=== PATIENT | male | born 1965 | race American Indian/Alaskan Native ===

== ENCOUNTER 2018-10-17 14:36 | Emergency (ER) | payer MEDICAID, OTHER ==
[2018-10-17 14:45] VITALS: BMI 44.6
[2018-10-17 14:54] VITALS: RESP 18; TEMP 98.2
--- NOTE | 2018-10-17 15:21 | ED PDOC ---
Arrival/HPI - General Historian: Patient - History of Present Illness Narrative History of Present Illness (Text): 10/17/18 15:09 52yr old male presents today with a 4 day history of left upper dental pain. pt states 4 day ago he started with just slight left upper dental pain that has been gradually increasing. pt states since last night symptoms worsened. Patient states he has been doing warm salt water gargles without improvement. Patient states today he woke up with swelling to the left side of the face. He denies blurred vision. Denies headaches dizziness or weakness. He denies fevers or chills. No medications have been taken at home. Patient denies pain with eye mov ement. No other complaints. <Shannon Hudson - Last Filed: 10/17/18 17:01> <Jimenez Kuhn - Last Filed: 10/17/18 17:23> - General Chief Complaint: Dental Pain Time Seen by Provider: 10/17/18 14:39 Past Medical History - Provider Review Nursing Documentation Reviewed: Yes - Travel History Have you recently traveled outside [place] w/in the past 3 mons?: No - Infectious Disease Hx of Infectious Diseases: None - Psychiatric Hx Substance Use: No <Shannon Hudson - Last Filed: 10/17/18 17:01> Family/Social History - Physician Review Nursing Documentation Reviewed: Yes Family/Social History: Unknown Family HX Smoking Status: Heavy Smoker > 10 Cigarettes Daily Hx Alcohol Use: Yes Frequency of alcohol use: Socially Hx Substance Use: No <Shannon Hudson - Last Filed: 10/17/18 17:01> Allergies/Home Meds <Shannon Hudson - Last Filed: 10/17/18 17:01> <Jimenez Kuhn - Last Filed: 10/17/18 17:23> Allergies/Adverse Reactions: Allergies No Known Allergies Allergy (Verified 10/17/18 14:45) Review of Systems - Review of Systems Constitutional: absent: Fatigue, Fevers ENT: Other (left dental pain, left sided facial swelling). absent: Sore Throat, Epistaxis, Sinus Congestion Respiratory: absent: SOB, Cough Cardiovascular: absent: Chest Pain, Palpitations Gastrointestinal: absent: Abdominal Pain, Nausea, Vomiting Skin: absent: Rash, Pruritis Neurological: absent: Headache, Dizziness Psychiatric: absent: Anxiety, Depression <Shannon Hudson - Last Filed: 10/17/18 17:01> Physical Exam Vital Signs Reviewed: Yes Vital Signs Temp Pulse Resp BP Pulse Ox 10/17/18 14:54 98.2 F 101 H 18 119/68 95 Temperature: Afebrile Blood Pressure: Normal Pulse: Tachycardic Respiratory Rate: Normal Appearance: Positive for: Well-Appearing, Non-Toxic, Comfortable Pain Distress: None Mental Status: Positive for: Alert and Oriented X 3 - Systems Exam Head: Present: Swelling (+ swelling to the left cheek; ) Pupils: Present: PERRL Extroacular Muscles: Present: EOMI. No: Entrapment Conjunctiva: Present: Normal Ears: Present: Normal, NORMAL TM Mouth: Present: Moist Mucous Membranes, Normal Lips, Normal Tounge. No: Drooling, Trismus, Normal Teeth (+ left upper molar dental tenderness with swelling noted to left upper gingiva) Pharnyx: Present: Normal. No: ERYTHEMA, EXUDATE, TONSILS ENLARGED, Peritonsilar Swelling Nose (External): Present: Atraumatic Nose (Internal): Present: Normal Inspection Neck: Present: Normal Range of Motion Respiratory/Chest: Present: Clear to Auscultation, Good Air Exchange. No: Respiratory Distress, Accessory Muscle Use Cardiovascular: Present: Regular Rate and Rhythm Neurological: Present: GCS=15 Skin: Present: Warm, Dry, Normal Color. No: Rashes Psychiatric: Present: Alert, Oriented x 3 <Shannon Hudson - Last Filed: 10/17/18 17:01> Vital Signs Temp Pulse Resp BP Pulse Ox 10/17/18 15:54 98.2 F 94 H 18 115/65 97 10/17/18 14:54 98.2 F 101 H 18 119/68 95 <Jimenez Kuhn - Last Filed: 10/17/18 17:23> Medical Decision Making ED Course and Treatment: 10/17/18 15:23 Patient is nontoxic well-appearing in no distress with stable vital signs No trismus or drooling, moist mucous membranes toradol Clindamycin Patient reassessment: Patient is feeling better after medications. I advised follow-up with the dentist within the next 2 days. I advised immediate return is symptoms worsen persist or if new concerning symptoms develop Patient verbalizes understanding of discharge instructions and need for immediate followup. Impression: Toothache, dental abscess Motrin every 6 hours as needed for pain Amoxicillin 1 tablet 3 times daily 10 days Clindamycin 1 tablet 3 times daily 7 days Follow-up with the dentist within the next 2 days Follow up with the primary care physician within the next 2 days. Return immediately if symptoms worsen persist or if new concerning symptoms develop: high fevers, increasing pain, swelling or if any other concerning symptoms develop - Medication Orders Current Medication Orders: Clindamycin HCl (Cleocin) 300 mg PO STAT STA; Protocol Stop: 10/17/18 15:07 Ketorolac Tromethamine (Toradol) 60 mg IM STAT STA Stop: 10/17/18 15:07 <Shannon Hudson - Last Filed: 10/17/18 17:01> - Medication Orders Current Medication Orders: Discontinued Medications Clindamycin HCl (Cleocin) 300 mg PO STAT STA; Protocol Stop: 10/17/18 15:07 Last Admin: 10/17/18 15:23 Dose: 300 mg Ketorolac Tromethamine (Toradol) 60 mg IM STAT STA Stop: 10/17/18 15:07 Last Admin: 10/17/18 15:23 Dose: 60 mg MAR Pain Assessment Document 10/17/18 15:23 [place] (Rec: 10/17/18 15:24 [place] [facility] [place] Pain Reassessment Is this a pain reassessment? No Sleep Is patient sleeping during reassessment? 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 <Jimenez Kuhn - Last Filed: 10/17/18 17:23> Disposition/Present on Arrival - Present on Arrival Any Indicators Present on Arrival: No History of DVT/PE: No History of Uncontrolled Diabetes: No Urinary Catheter: No History of Decub. Ulcer: No History Surgical Site Infection Following: None - Disposition Have Diagnosis and Disposition been Completed?: Yes Disposition Time: 15:24 Patient Plan: Discharge <MeghanJerry zamoradeann Tyler - Last Filed: 10/17/18 17:01> <Jimenez Kuhn - Last Filed: 10/17/18 17:23> - Disposition Diagnosis: Toothache, Dental abscess Disposition: HOME/ ROUTINE Condition: GOOD Discharge Instructions (ExitCare): Tooth Abscess (DC), Dental Pain (DC) Additional Instructions: Motrin every 6 hours as needed for pain Tramadol; 1 tablet every 8 hours as needed for moderate to severe pain: may cause drowsiness Clindamycin 1 tablet 3 times daily 7 days Follow-up with the dentist within the next 2 days Follow up with the primary care physician within the next 2 days. Return immediately if symptoms worsen persist or if new concerning symptoms develop: high fevers, increasing pain, swelling or if any other concerning symptoms develop Prescriptions: Clindamycin [Cleocin] 300 mg PO TID #21 cap Ibuprofen [Motrin] 600 mg PO Q6H PRN #20 tab PRN Reason: pain/fever reduction traMADol [Ultram] 50 mg PO Q6H PRN #6 tab PRN Reason: moderate to severe pain Referrals: Jones Cunningham DMD [Staff Provider] - Follow up with primary Nate Schreiber DMD [Non-Staff] - Follow up with primary Gretchen Peng MD [Medical Doctor] - Follow up with primary [employer] [facility] [Outside] - Follow up with primary Forms: [employer] (Par[place]ayan), WORK NOTE
[2018-10-17 15:55] VITALS: BP 115/65; PULSE 94; O2SAT 97
== END 2018-10-17 15:55 | disposition home or self-care (01) ==
LOC: ED 14:36
DX: K04.7 Periapical abscess without sinus (principal); K08.89 Other specified disorders of teeth and supporting structures; F17.210 Nicotine dependence, cigarettes, uncomplicated
CPT/HCPCS: 96372; 99282; J1885